=== PATIENT | female | born 1985 | race Caucasian/White ===

== ENCOUNTER 2020-12-24 09:23 | Emergency (ER) | payer BC, SELFPAY ==
[2020-12-24] VITALS (11 sets, daily range): BP systolic 108–126; BP diastolic 74–96; PULSE 73–98; RESP 14–21; O2SAT 98–100
--- NOTE | ~2020-12-24 | XR_ITS ---
EXAMINATION: XR chest 2V DATE: 12/24/2020 09:50 INDICATION: Palpitations and weakness. TECHNIQUE: frontal and lateral views of the chest were obtained. COMPARISON: None FINDINGS: There are multiple scattered small bilateral calcified pulmonary nodules consistent with old granulom atous disease. No other airspace opacities, pulmonary edema, pleural effusion or pneumothorax. The ca rdiomediastinal silhouette is normal. Mild thoracolumbar dextrocurvature with minimal thoracic spondy losis. IMPRESSION: 1. No acute cardiopulmonary disease. Reviewed, dictated and finalized at location A.
--- NOTE | 2020-12-24 09:34 | ECG_ITS ---
Measurements Intervals [place] Rate: 90 P: 48 MO: 113 QRS: 72 QRSD: 86 T: 35 QT: 366 QTc: 449 Interpretive Statements SINUS RHYTHM WITH SHORT MO INTERVAL BASELINE ARTIFACT- avf BORDERLINE ECG Electronically Signed On 12-24-2020 10:12:19 CDT by Jem Reid D.O.
[2020-12-24 09:51] LABS: Basophils Percent Auto 0.8 % (0.2-1.2); Eosinophils Percent Auto 0.6 % (0-4.4); Hematocrit 42.7 % (37.0-47.0); Hemoglobin 14.4 g/dL (12.0-15.0); Immature Granulocyte Absolute 0.01 K/mm3 (0.00-0.031); Immature Granulocyte Percent A 0.2 % (0-0.5); Lymphocytes Absolute Auto 1.69 K/mm3 (0.9-3.2); Lymphocytes Percent Auto 34.6 % (18.3-44.2); Mean Corpuscular HGB Conc 33.7 g/dl (32-36); Mean Corpuscular Hemoglobin 30.1 pg (26-34); Mean Corpuscular Volume 89.1 fl (80-100); Mean Platelet Volume 9.9 fl (7.4-10.4); Monocytes Absolute Auto 0.4 K/mm3 (0.1-0.6); Monocytes Percent Auto 8.4 % (2.6-8.5); Neutrophils Absolute Auto 2.7 K/mm3 (1.3-6.7); Neutrophils Percent Auto 55.4 % (45.5-73.1); Platelet Count Result 188 k/mm3 (150-375); Red Blood Count 4.79 M/mm3 (4.2-5.4); Red Cell Distribution Width 12.5 % (11.5-14.5); White Blood Count 4.9 K/mm3 (4.5-10.0)
[2020-12-24 10:01] LABS: Anion Gap 13 mmol/L (8-16); Blood Urea Nitrogen 11 mg/dL (7-17); Calcium 9.2 mg/dL (8.4-10.2); Carbon Dioxide 20 mmol/L (22-30); Chloride 104 mmol/L (98-107); Estimated CRCL calculation 84 ml/min; Estimated Glomerular Filt Rate > 60; Glucose 140 mg/dL (65-110); Potassium 3.3 mmol/L (3.4-5.0); Sodium 137 mmol/L (137-145)
[2020-12-24 10:03] LABS: Prothrombin Time 13.3 Seconds (11.1-14.7)
[2020-12-24 10:04] LABS: Partial Thromboplastin Time 26.4 SECONDS (22.3-36.8)
[2020-12-24 10:12] LABS: Troponin I < 0.012 ng/mL (0.000-0.034)
[2020-12-24 10:20] LABS: Troponin I < 0.012 ng/mL (0.000-0.034)
[2020-12-24] MEDS: POTASSIUM CHLORIDE 20 MEQ TABLET PO (11:10)
[2020-12-24 12:47] LABS: Troponin I < 0.012 ng/mL (0.000-0.034)
--- NOTE | 2020-12-24 12:53 | ED.GENADULT ---
HPI - General Adult General Chief complaint: Arrhythmia/Palpitations Stated complaint: heart racing Time Seen by Provider: 12/24/20 10:33 Source: patient Mode of arrival: ambulatory Limitations: no limitations History of Present Illness HPI narrative: Patient with history of anxiety presents with chief complaint of having an episode where she was feeling sweaty and tingling to her hands and feet as well as her heart racing this morning. Patient states she took her daughter to school then came home and tried to relax and watch TV to take off the feeling however she continued to feel as if something was wrong so she called her mother to come pick her up and bring her to the hospital. Patient states that she has had these episodes in the past but not has not not had one for many months. She states in the past she was told that her symptoms were likely caused by anxiety. She denies ever wearing a Holter monitor. She states she began googling online and wonder if she was having some kind of thyroid abnormality as the runs in her family. Patient states she wanted to be evaluated to make sure nothing serious was occurring. Patient states she has not had any increase in her stress levels recently that she was able to trigger her symptoms. Patient denies any symptoms at this time. Related Data Home Medications Medication Instructions Recorded Confirmed No Home Medications 12/24/20 12/24/20 Allergies Allergy/AdvReac Type Severity Reaction Status Date / Time No Known Allergies Allergy Verified 12/24/20 09:37 Review of Systems Review of Systems: CONSTITUTIONAL: Denies fever, chills, or sweats. EYES: Denies visual changes, redness, or discharge. ENT: Denies rhinorrhea, congestion, sore throat, or otalgia. CARDIOVASCULAR: Reports resolved tachycardia denies chest pain, palpitations, or edema. RESPIRATORY: Denies cough or dyspnea. GASTROINTESTINAL: Denies abdominal pain, nausea, vomiting, or diarrhea. GENITOURINARY: Denies dysuria or hematuria. SKIN: Denies rash or itching. MUSCULOSKELETAL: Denies back pain, joint pain, or myalgia. NEUROLOGIC: Reports resolved tingling and sweating denies headache, numbness, dizziness, or weakness. PSYCHIATRIC: Denies anxiety or depression. Exam Narrative: GENERAL: Well-appearing, well-nourished, and in no acute distress. Patient smiling and talking normally. Without signs of discomfort or distress. HEAD: Normocephalic, atraumatic. EYES: PERRLA and EOMI. NECK: Supple. No adenopathy or masses. CHEST: Clear to auscultation. No respiratory distress. No wheezes rales or rhonchi HEART: Regular rate and rhythm. No murmur heard. Normal peripheral pulses. ABDOMEN: Soft, nontender, nondistended, normal active bowel sounds. EXTREMITIES: Normal range of motion. No edema. SKIN: Warm, dry, no rash. NEURO: No focal deficits. Alert and oriented x3. Speech is appropriate and clear. PSYCH: Normal mood and affect. Course Vital Signs Vital signs: Vital Signs Pulse Rate 91 12/24/20 09:34 Respiratory Rate 18 12/24/20 09:34 Blood Pressure 126/92 H 12/24/20 09:34 Pulse Oximetry 100 12/24/20 09:34 Pulse Rate 84 12/24/20 13:43 Respiratory Rate 16 12/24/20 13:43 Blood Pressure 116/83 12/24/20 13:43 Pulse Oximetry 98 12/24/20 13:43 Medical Decision Making [facility] Narrative Medical decision making narrative: Patient work-up in the emergency department has been negative except for a slightly lower than normal potassium and slightly elevated blood glucose. Patient is not having any symptoms in emergency department. Her EKG is normal her troponin and delta troponin have been normal. Patient has not had tachycardia while in emergency department. Her blood pressures are stable. Her TSH is normal. Patient has been instructed to follow-up with her primary care for further investigation of her symptoms. Patient may need a an event monitor. Vital Signs Vital Signs: Vital Signs Pulse
== END 2020-12-24 13:44 | disposition home or self-care (01) ==
PROVIDERS: Physician Assistant; Emergency Provider Emergency Medicine
DX: E87.6 Hypokalemia (principal); R73.9 Hyperglycemia, unspecified; R94.31 Abnormal electrocardiogram [ECG] [EKG]
CPT/HCPCS: 36415; 71046; 80048; 81025; 84443; 84484; 85025; 85610; 85730; 93005; 99284; A9270